=== PATIENT | male | born 1985 | race Caucasian/White ===

== ENCOUNTER 2018-04-03 07:33 | Outpatient (CLI) | payer OTHER ==
--- NOTE | 2018-04-03 10:58 | MRI ---
MRI CERVICAL SPINE WITHOUT CONTRAST: HISTORY: Cervical radiculopathy. Neck pain radiating down the right shoulder. Right hand numbness x1 year. COMPARISON: None. TECHNIQUE: A cervical spine MRI is performed without intravenous Gadolinium administration. Multisequential, mu ltiplanar imaging is performed. FINDINGS: There is straightening of the normal cervical lordosis. Cervical spine vertebral body height is main tained. There is no fracture. There is diffuse abnormal T1 marrow signal intensity of the cervical vertebrae. No hyperintensity to suggest vertebral body edema. No MR evidence of ligamentous injury. The visualized brain parenchyma, cervicomedullary junction, cervical cord, and upper thoracic cord lau ve normal size and signal intensity. C2-C3: No significant central canal stenosis or neural foraminal narrowing. C3-C4: No significant central canal stenosis or neural foraminal narrowing. C4-C5: Minimal central/right paracentral disk bulge. No significant central canal stenosis or neura l foraminal narrowing. C5-C6: No significant central canal stenosis or neural foraminal narrowing. C6-C7: No significant central canal stenosis or neural foraminal narrowing. C7-T1: No significant central canal stenosis or neural foraminal narrowing. IMPRESSION: 1. No significant central canal stenosis or foraminal narrowing throughout the cervical spine. 2. Diffuse T1 marrow signal hypointensity involving the visualized cervical and thoracic vertebrae. Correlate for anemia versus a marrow infiltrative process. CODE T POS: OSKAR
== END 2018-04-03 07:34 | disposition home or self-care (01) ==
LOC: TBSIIMAG 07:33
PROVIDERS: ATTEND Orthopaedic Surgery
DX: M54.12 Radiculopathy, cervical region (principal)
CPT/HCPCS: 72141